=== PATIENT | female | born 1985 | race Caucasian/White ===

== ENCOUNTER → 2024-06-29 | Emergency (ER) | payer SELFPAY ==
[~2024-06-29] VITALS: Ht 157.5 cm; Wt 36.0 kg
[2024-06-29 05:10] VITALS: O2SAT 100
[2024-06-29 06:13] LABS: BASOPHILS % 0.3 % (0.0-2.0); EOSINOPHILS % 2.5 % (0.0-5.0); HEMATOCRIT. 35.3 % (36.0-48.0); LYMPHOCYTES % 24.1 % (20.0-50.0); MEAN CORPUSCULAR HEMOGLOBIN 30.9 pg (28.0-32.0); MEAN CORPUSCULAR HGB CONC 33.9 g/dL (31.0-37.0); MEAN CORPUSCULAR VOLUME 91.1 fL (81.0-99.0); MEAN PLATELET VOLUME 6.8 fl (7.4-10.4); MONOCYTES % 7.1 % (2.0-8.0); PLATELET 342 x1000/uL (130-400); RED BLOOD CELL COUNT 3.88 mill/uL (4.2-5.4); RED CELL DISTRIBUTION WIDTH 13.3 % (11.6-14.6); WHITE BLOOD COUNT 9.1 x1000/uL (4.5-11.0)
[2024-06-29] MEDS: KETOROLAC 30MG/ML VIAL IV STA (06:18)
[2024-06-29 06:19] LABS: CARBON DIOXIDE 30 mEq/L (21-32); CHLORIDE 106 mEq/L (98-107); POTASSIUM 3.5 mEq/L (3.5-5.1); SODIUM 140 mEq/L (136-145)
[2024-06-29] MEDS: ONDANSETRON HCL 4MG/2ML INJ IV ONE (06:19)
[2024-06-29 06:20] LABS: CALCIUM 9.3 mg/dL (8.7-10.4)
[2024-06-29 06:25] LABS: CREATININE 0.7 mg/dL (0.6-1.0); GLUCOSE 105 mg/dL (70-105); UREA NITROGEN BLOOD 8 mg/dL (9-23)
[2024-06-29 06:27] LABS: ALANINE AMINOTRANSFERASE 14 IU/L (10-49); ALBUMIN 4.2 g/dL (3.2-4.8); ASPARTATE AMINOTRANSFERASE 16 IU/L (<34); BILIRUBIN TOTAL 0.3 mg/dL (0.1-1.0); PROTEIN TOTAL 6.5 g/dL (6.0-8.3)
[2024-06-29 06:37] LABS: BILIRUBIN DIRECT < 0.1 mg/dL (<=3.0)
[2024-06-29 06:40] LABS: HCG SCREEN NEGATIVE
[2024-06-29 07:20] LABS: CLARITY URINE CLEAR (CLEAR); COLOR URINE DARK YELLOW (YELLOW); GLUCOSE URINE NEGATIVE (NEGATIVE); KETONES URINE NEGATIVE (NEGATIVE); LEUKOCYTE ESTERASE URINE NEGATIVE (NEGATIVE); NITRITE URINE NEGATIVE (NEGATIVE); OCCULT BLOOD URINE 2+ (NEGATIVE); PH URINE 5.5 (4.5-8.0); PROTEIN URINE NEGATIVE (NEGATIVE); SPECIFIC GRAVITY URINE 1.022 (1.005-1.030)
[2024-06-29 07:35] LABS: BACTERIA URINE 2+; MUCUS URINE 1+ /lpf (< = 2+); RBC URINE 0-2 /hpf (0-2); SQUAMOUS EPITHELIAL CELL URINE 1+ /lpf (RARE/1+); WBC URINE 0-2 /hpf (0-2); YEAST URINE NONE SEEN
[2024-06-29] MEDS: MORPHINE SULFATE 4 MG/ML INJ (FOR IV/IM USE) IV ONE (08:05)
[2024-06-29 10:00] VITALS: TEMP 37.05852; O2SAT 99
[2024-06-29 10:14] VITALS: BP 98/53; PULSE 58; RESP 16; TEMP 98.7
== END ==
LOC: ER 05:04 → EDBEDREQTM 09:02 → EDBEDREQ 09:02 → CANBEDREQ 11:23
DX: R10.11 Right upper quadrant pain (principal); R11.10 Vomiting, unspecified
CPT/HCPCS: 80076; 80048; 81003; 84703; 83690; 85025; 85610; 36415; 76705; 96374; 96375; 99285; J1885; J2405; Z7610 ×5

== ENCOUNTER 2024-07-03 14:14 | Emergency (ER) | payer SELFPAY ==
[~2024-07-03] VITALS: Ht 165.1 cm; Wt 62.0 kg
[2024-07-03 14:18] VITALS: BP 110/67; PULSE 60; RESP 16; TEMP 98.1; O2SAT 99
== END 2024-07-03 21:08 | disposition left against medical advice (07) ==
LOC: ER 14:32
DX: R10.9 Unspecified abdominal pain (principal); Z53.21 Procedure and treatment not carried out due to patient leaving prior to being seen by health care provider